=== PATIENT | female | born 1980 | race Caucasian/White ===

== ENCOUNTER 2021-07-21 05:32 | Outpatient (CLI) | payer OTHER ==
[~2021-07-21] VITALS: Ht 162.6 cm; Wt 87.0 kg
[2021-07-24] MEDS ORDERED: ACET1TAB43 PO (09:57)
== END 2021-07-23 12:07 | disposition home or self-care (01) ==
LOC: PREOP 05:32
PROVIDERS: ATTEND Surgery
DX: Z01.818 Encounter for other preprocedural examination (principal)

== ENCOUNTER 2021-07-24 09:23 | Day surgery (SDC) | payer OTHER ==
[~2021-07-24] VITALS: Ht 162.6 cm; Wt 87.0 kg
[2021-07-24] VITALS (12 sets, daily range): BP systolic 100–132; BP diastolic 65–90
[2021-07-24] MEDS ORDERED: fentaNYL INJ 100 MCG/2 ML AMP ONE ×2 (09:43→10:48)
[2021-07-24] MEDS ORDERED: ONDANSETRON 4 MG/2 ML (SDV) Z0FRAN ONE (09:43)
[2021-07-24] MEDS ORDERED: proPOfol 200 MG/20 ML (DIPRIVAN) VIAL IV ONE (09:43)
[2021-07-24] MEDS ORDERED: LIDOCAINE PF 2% 5 ML (XYLOCAINE) VIAL ONE (09:43)
[2021-07-24] MEDS ORDERED: MIDAZOLAM 2 MG/2 ML (VERSED) VIAL ONE (09:43)
[2021-07-24] MEDS ORDERED: ceFAZolin 2 GM IV Premixed 50 ML IV ONE (09:45)
[2021-07-24] MEDS ORDERED: LIDOCAINE/EPI 1%-1:200,000 (XYLOCAINE) 30 ML VIAL ONE (09:46)
--- NOTE | 2021-07-24 09:53 | Progress Note-Pre Operative ---
Pre-Operative Progress Note H&P Reviewed The H&P was reviewed, patient examined and no changes noted. Date Seen by Provider: Jul 24, 2021 Time Seen by Provider: 09:50 Date H&P Reviewed: Jul 24, 2021 Time H&P Reviewed: 09:45 Pre-Operative Diagnosis: Ischiorectal abscess and fistula YASIR HOGUE APRN Jul 24, 2021 09:53
[2021-07-24] MEDS: LACTATED RINGERS 1,000 ML IV PRN ×3 (09:55→10:49)
[2021-07-24] MEDS ORDERED: ACET1TAB43 PO (09:57)
--- NOTE | 2021-07-24 09:57 | Discharge Inst-Surgical ---
D/C Lap Instructions-KIDO Reconcile Patient Problems Problems Reviewed?: Yes New, Converted, or Re-Newed RX: RX on Chart Follow Up Appt in 2 weeks Activity as tolerated No driving for 24 hours No driving while on pain medications Incentive Spirometry use every 2 hours while awake Regular Diet Symptoms to Report: Fever over 101 degree F, Nausea/Vomiting Infection Signs and Symptoms to report: Increased redness, Foul odor of wound, Increased drainage Bathing instructions: May shower Operative Area Clean/Dry; Keep incision clean/dry If any problems/questions: Contact your physician or go to Emergency Room YASIR HOGUE APRN Jul 24, 2021 09:57
[2021-07-24] MEDS ORDERED: ACETAMINOPHEN 325 MG TABLET PO PRN (10:00)
[2021-07-24] MEDS ORDERED: APAP 300 MG/CODEINE 30 MG (TYLENOL #3) TAB PO PRN (10:00)
[2021-07-24] MEDS ORDERED: fentaNYL INJ 100 MCG/2 ML AMP IVP PRN (10:00)
[2021-07-24] MEDS ORDERED: ONDANSETRON 4 MG/2 ML (SDV) Z0FRAN IVP PRN ×2 (10:00→11:45)
[2021-07-24] MEDS ORDERED: SEVOFLURANE (ULTANE) 15 ML INHAL SOLN ONE (10:55)
--- NOTE | 2021-07-24 11:08 | Progress Note-Post Operative ---
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 Procedure & Operative Findings Date of Procedure 07/24/21 Procedure Performed/Findings anal exam under anesthesia, incision and drainage perirectal abscess, fistulotomy, pudendal nerve block Anesthesia Type general LMA with pudendal n. block and local Estimated Blood Loss Estimated blood loss (mL): minimal Specimens/Packing Specimens Removed none CYNDI ROBB MD Jul 24, 2021 11:08
[2021-07-24] MEDS ORDERED: morphine INJ 10 MG/ML 1ML (SYR OR VIAL) ONE (11:43)
[2021-07-24] MEDS ORDERED: morphine INJ 10 MG/ML 1ML (SYR OR VIAL) IVP ONE (11:45)
[2021-07-24] MEDS ORDERED: HYDROmorphone 2 MG/ML VIAL (DILAUDID) IV ONE (11:45)
--- NOTE | 2021-07-24 13:03 | OPERATIVE REPORT ---
DATE OF SERVICE: 07/24/2021 ATTENDING PRIMARY CARE PHYSICIAN: Edmund Lagunas DO PREOPERATIVE DIAGNOSES: Perirectal abscess, perianal fistula. POSTOPERATIVE DIAGNOSES: Right perirectal abscess, perianal fistula at approximately the 6 o'clock position with the patient in lithotomy, which was superficial to the anal sphincters. PROCEDURE: Anal exam under anesthesia, pudendal nerve block, fistulotomy, incision and drainage of perirectal abscess. SURGEON: Cyndi Robb MD. OFFICE SERVICES CLERK: Сергей Mueller APRN. ANESTHESIA: General laryngeal mask airway pudendal nerve block and local. ESTIMATED BLOOD LOSS: Minimal. FINDINGS: Right perirectal abscess, perianal fistula at approximately the 6 o'clock position with the patient in lithotomy, which was superficial to the anal sphincters. DISPOSITION: The patient tolerated the procedure well. INDICATIONS: The patient is a 41-year-old female who has had issues with perianal swelling and pain as well as drainage on an intermittent basis for the past 4 years. She states that this occurs approximately once or twice every year and she had more recent episode a few weeks ago. She reports that redness and swelling along the perianal region would develop and this would go larger in size and covered with red, erythematous skin and eventually find an opening and then drain. Upon examination in the office, she was found to have a fistulous tract at approximately the 8 o'clock position with the patient in lithotomy. A perirectal abscess was also palpable. She also reports that at times she has felt fevers and chills with these kinds of inflammation. She does not report any history of crampy abdominal pain or diarrhea as well as no red blood per rectum. She also does not report any family history of inflammatory bowel disease. DESCRIPTION OF PROCEDURE: The patient was brought to the operating room, laid supine on the table. After adequate IV pain and sedative medications and general laryngeal mask airway intubation, the perineum was prepped and draped in standard surgical fashion. A pudendal nerve block was then done using 1% lidocaine with epinephrine, approximately 2 cm from the ischial tuberosity bilaterally. The anal sphincters then relax and a self-retaining speculum was placed. A circumferential examination was made. There appeared to be two openings, one which was a perianal more along the right buttock and a hard palpable mass, likely consistent with a chronic abscess adjacent to it. There was a fistulous tract at the 6 o'clock position with the patient in lithotomy. This was probed with a lacrimal probe and did open up into a tract of the anal canal. This was superficial to the anal sphincters. Using electrocautery over the lacrimal probe, the fistula was opened with visualization of good hemostasis. Before this, 1% lidocaine with epinephrine was used to anesthetize the overlying area. Good hemostasis was observed. We then proceeded with an incision and drainage of a perirectal abscess and the incision along the right buttock sinus opening was made using a 15 blade after the skin and subcutaneous tissue were anesthetized using 1% lidocaine with epinephrine. The chronic abscess cavity was identified and loculations broken up using blunt finger dissection. The abscess cavity was then copiously irrigated and suctioned out. A half-inch Aditya drain was then placed into the cavity followed by half-inch iodoform gauze. Gelfoam covered in Surgicel was then placed into the anal canal as a hemostatic agent. This was then followed by 4 x 4 gauze followed by ABD pad followed by mesh shorts. The patient tolerated the procedure well. She will be instructed to do Sitz baths 4 times a day as well as after every bowel movement and to proceed with stool softeners on a regular basis as well as fiber supplementation to make her stools soft on a daily basis. We will also have her remove the packing in [address] a gauze dressing on a b.i.d. as well as p.r.n. basis to the open wound. We will have her follow up in the office in approximately 1 week. Job ID: [id number] DocumentID: [id number] Dictated Date: 07/24/2021 11:22:11 Linotype Operator Date: 07/24/2021 13:03:11 Dictated By: CYNDI ROBB MD
--- NOTE | 2021-07-24 13:17 | Anesthesia-General Post-Op ---
General Patient Condition Mental Status/LOC: Same as Preop Cardiovascular: Satisfactory Nausea/Vomiting: Absent Respiratory: Satisfactory Pain: Controlled Complications: Absent Post Op Complications Complications None Follow Up Care/Instructions Patient Instructions None needed. Anesthesia/Patient Condition Patient Condition Patient was doing well after the procedure, no complaints, stable vital signs, no apparent adverse anesthesia problems. SARAH DAILEY DO Jul 24, 2021 13:17
== END 2021-07-24 14:00 | disposition home or self-care (01) ==
LOC: SDC 09:23
PROVIDERS: ATTEND Surgery
DX: K61.39 Other ischiorectal abscess (principal); F17.210 Nicotine dependence, cigarettes, uncomplicated; Z80.1 Family history of malignant neoplasm of trachea, bronchus and lung
CPT/HCPCS: 84703; 87081